=== PATIENT | male | born 1980 | race Asian ===

== ENCOUNTER 2020-05-23 06:43 | Emergency (ER) | payer OTHER ==
[~2020-05-23] VITALS: Ht 177.8 cm; Wt 68.0 kg
--- NOTE | 2020-05-23 06:43 | NUR ---
Patient to ER bed 6 to gown for evaluation. Side rails up. Report given to self.
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
[2020-05-23 06:47] VITALS: BP_SYST 124
--- NOTE | 2020-05-23 06:47 | NUR ---
ER Dr. Lanza at bedside examining patient.
[2020-05-23] MEDS ORDERED: KETOROLAC TROMETHAMINE 60 MG/2 ML VIAL IM ONE ×2 (07:00→07:01)
--- NOTE | 2020-05-23 07:06 | NUR ---
Assumed care of pt. Pt resting in bed on his cell phone. Pain medication administered by diesel dinkey engineer. Pt alert and oriented no distress noted. Will monitor for reaction to pain medication.
[2020-05-23] MEDS ORDERED: NAPR-690 PO ×2 (07:17→07:22)
[2020-05-23] MEDS ORDERED: CYCL-10 PO ×2 (07:17→07:23)
--- NOTE | 2020-05-23 07:30 | NUR ---
No reaction to IM injfection noted. Pt A&O and states he ready to go home.
--- NOTE | 2020-05-23 07:35 | NUR ---
Patient given written and verbal discharge instructions and verbalizes understanding. ER MD discussed with patient the results and treatment provided. Patient in stable condition. ID arm band removed. Rx of Flexeril and Naprosyn given. Patient educated on pain management and to follow up with PMD. Pain Scale 3. Opportunity for questions provided and answered. Medication side effect fact sheet provided.
[2020-05-23 07:36] VITALS: BP_SYST 124
== END 2020-05-23 07:35 | disposition home or self-care (01) ==
LOC: SED 06:43
DX: M54.5 Low back pain (principal); V49.49XA Driver injured in collision with other motor vehicles in traffic accident, initial encounter; Y93.89 Activity, other specified; Y92.413 State road as the place of occurrence of the external cause; Y99.8 Other external cause status
CPT/HCPCS: 96372; 99283; J1885